=== PATIENT | female | born 1935 | race Caucasian/White ===

== ENCOUNTER 2018-04-05 18:10 | Inpatient (IN) | payer OTHER, BC ==
[~2018-04-05] VITALS: Ht 170.2 cm; Wt 49.0 kg
[2018-04-05 18:23] VITALS: Ht 170.2 cm; Wt 49.0 kg
[2018-04-05 23:05] LABS: BASOPHIL % 0.3 % (0-2); PLATELET COUNT 294 x10^3mcL (130-400); RED CELL DISTRIBUTION WIDTH 13.5 % (11.5-14.5)
[2018-04-05 23:12] LABS: CALCIUM 8.5 mg/dL (8.5-10.1); CARBON DIOXIDE 31.6 mmol/L (21-32); CHLORIDE SERUM 104 mmol/L (98-107); CREATININE SERUM 0.5 mg/dL (0.6-1.0); GLUCOSE SERUM 107 mg/dL (74-106); POTASSIUM SERUM 3.4 mmol/L (3.5-5.1); SODIUM SERUM 142 mmol/L (136-145)
[2018-04-05 23:17] LABS: ALKALINE PHOSPHATASE 103 U/L (46-116); ALT/SGPT 16 U/L (14-59); AST/SGOT 17 U/L (15-37); BILIRUBIN TOTAL 0.74 mg/dL (0.20-1.00); TOTAL PROTEIN, SERUM 6.8 g/dL (6.4-8.2)
[2018-04-05] MEDS ORDERED: TYLENOL325 M1 (23:27)
[2018-04-05] MEDS ORDERED: DEPAKOTE ER250 M1 (23:29)
[2018-04-05] MEDS ORDERED: BUSPIRONE HCL10 MG (23:29)
[2018-04-05] MEDS ORDERED: PEPCID40 MG (23:30)
[2018-04-05] MEDS ORDERED: COLACE100 MG (23:30)
[2018-04-05] MEDS ORDERED: NEURONTIN100 MG (23:30)
[2018-04-05] MEDS ORDERED: ARICEPT10 MG (23:30)
[2018-04-05] MEDS ORDERED: LATUDA40 M1 ×2 (23:31→23:32)
[2018-04-05] MEDS ORDERED: EPZICOM1 TAB ×2 (23:31→23:33)
[2018-04-05] MEDS ORDERED: LORAZEPAM0.5 MG ×2 (23:31→23:32)
[2018-04-05] MEDS ORDERED: NAMENDA10 M2 (23:31)
[2018-04-05] MEDS ORDERED: MECLIZINE HYD12.5 MG (23:33)
[2018-04-05] MEDS ORDERED: IMITREX50 MG (23:33)
[2018-04-05 23:59] LABS: MAGNESIUM 1.9 mg/dL (1.8-2.4); PHOSPHOROUS 3.1 mg/dL (2.5-4.9)
[2018-04-06 00:01] LABS: CHOLESTEROL/HDL RATIO 2.3
[2018-04-06 00:07] LABS: T3 TOTAL 0.8 ng/mL
[2018-04-06 00:08] VITALS: BP 145/80
[2018-04-06 00:17] LABS: FREE T4 1.05 ng/dL (0.76-1.46); FREE THYROXINE INDEX 3.3 ug/dL (1.4-4.5); T4(THYROXINE) 9.5 ug/dL (4.7-13.3)
[2018-04-06 05:49] VITALS: BP 153/81
[2018-04-06 06:24] LABS: PLATELET COUNT 314 x10^3mcL (130-400); RED CELL DISTRIBUTION WIDTH 13.8 % (11.5-14.5)
[2018-04-06 06:32] LABS: CALCIUM 8.7 mg/dL (8.5-10.1); CARBON DIOXIDE 32.1 mmol/L (21-32); CHLORIDE SERUM 105 mmol/L (98-107); CREATININE SERUM 0.6 mg/dL (0.6-1.0); GLUCOSE SERUM 89 mg/dL (74-106); MAGNESIUM 2.1 mg/dL (1.8-2.4); PHOSPHOROUS 3.6 mg/dL (2.5-4.9); POTASSIUM SERUM 3.2 mmol/L (3.5-5.1); SODIUM SERUM 146 mmol/L (136-145)
[2018-04-06 06:38] LABS: BASOPHIL % 2.5 % (0-2)
[2018-04-06 08:30] VITALS: BP 144/73
[2018-04-06 17:15] VITALS: BP 152/79
[2018-04-06 20:43] VITALS: BP 137/72
[2018-04-07 05:00] VITALS: BP 132/69
[2018-04-07 08:01] VITALS: BP 140/70
[2018-04-07 10:54] VITALS: BP 140/70
[2018-04-07 11:51] VITALS: BP 148/76
== END 2018-04-07 15:25 | disposition hospice, home (50) | DRG 536 ==
LOC: ED 18:10 → MU 22:30
PROVIDERS: Emergency Medicine; ADMIT Internal Medicine
DX: S32.591A Other specified fracture of right pubis, initial encounter for closed fracture (principal); R64 Cachexia; Z68.1 Body mass index [BMI] 19.9 or less, adult; G30.9 Alzheimer's disease, unspecified; F02.80 Dementia in other diseases classified elsewhere, unspecified severity, without behavioral disturbance, psychotic disturbance, mood disturbance, and anxiety; F39 Unspecified mood [affective] disorder; I10 Essential (primary) hypertension; W18.39XA Other fall on same level, initial encounter; Y92.099 Unspecified place in other non-institutional residence as the place of occurrence of the external cause
CPT/HCPCS: 84439; J7030; J7070; Q0092